=== PATIENT | female | born 1950 | race Caucasian/White ===

== ENCOUNTER → 2016-12-15 | Outpatient (CLI) | payer MEDICARE | LOC: RAD 13:48 | PROVIDERS: ATTEND Specialist | DX: N30.40 Irradiation cystitis without hematuria (principal); R59.0 Localized enlarged lymph nodes; N18.2 Chronic kidney disease, stage 2 (mild) | CPT/HCPCS: 76770 ==

== ENCOUNTER 2017-01-25 08:24 | Day surgery (SDC) | payer MEDICARE, OTHER ==
--- NOTE | 2017-01-20 11:54 | HISTORY AND PHYSICAL E ---
History and Physical NAME: CONRADO ESPINOZA : 1950 AGE: 66Y ADMITTED: 01/25/2017 ROOM: CHIEF COMPLAINT: Severe reflux. PLAN: Upper scope. HISTORY: Known to me since 2003. I saw her regarding constipation, bloating. FAMILY HISTORY: Father has hypertension. Her mom had lung cancer. Father had cancer. SOCIAL HISTORY: The patient is with 4 children. Does not smoke. Does not drink. REVIEW OF SYSTEMS: Reflux, constipation, high cholesterol. CARDIAC: Hypertension. GASTROINTESTINAL: Reflux, diverticulosis, abdominal pain. ONCOLOGY: CA of the breast. MUSCULOSKELETAL: Back pain. MEDICATIONS: She takes iron infusion. PHYSICAL EXAMINATION: VITAL SIGNS: Blood pressure 120/80, pulse 80, respirations 18, temp is 98. Blood pressure 140/100. HEAD, EYES, EARS, NOSE AND THROAT: Normal. NECK: Neck is supple. LUNGS: Lungs are clear. ABDOMEN: Soft. NEUROLOGIC: Exam negative. Colon in 2003, sigmoid diverticulosis. At this time, the patient with exacerbation of reflux. PAST SURGICAL HISTORY: 1. Back surgery L5. 2. Breast cancer lumpectomy right. She was patient of Dr. Friedman. @ CONCLUSIONS: Severe reflux. PLAN: Upper endoscopy scheduled for 01/25/2017. MEDICATIONS: 1. Valsartan. 2. Simvastatin. 3. Aspirin. 4. Oxycodone. DICTATING PHYSICIAN: BREANA MORALES M.D. [id number] PHY#: [id number] ID: [id number] JOB#: [id number] ACCT: [id number] cc:BREANA MORALES M.D., ROBERT M.D. >
[~2017-01-25 08:24] MED LIST: EPINEPHRINE INJ 1 MG/10 ML DISP.SYRIN ONE; FENTANYL CITRATE INJ/PF 100 MCG/2 ML AMPUL ONE; FLUMAZENIL INJ 0.5 MG/5 ML VIAL IV ONE; GLYCOPYRROLATE INJ 0.4 MG/2 ML VIAL ONE; NALOXONE HCL INJ/PF 0.4 MG/1 ML SDV ONE; ONDANSETRON HCL INJ/PF 4 MG/2 ML SDV ONE; PROMETHAZINE HCL INJ 25 MG/1 ML VIAL ONE
[2017-01-25] MEDS: MIDAZOLAM 2 MG/2 ML INJ ONE ×3 (09:18→09:24)
[2017-01-25 10:30] LABS: ABSOLUTE BASOPHILS # (AUTO) 0.1 10^3/uL (0.0-0.2); ABSOLUTE EOSINOPHILS # (AUTO) 0.2 10^3/uL (0.0-0.6); ABSOLUTE LYMPHOCYTES (AUTO) 1.4 10^3/uL (0.5-4.7); ABSOLUTE MONOCYTES (AUTO) 0.6 10^3/uL (0.1-1.4); ABSOLUTE NEUT (AUTO) 3.8 10^3/uL (1.7-8.2); EOSINOPHILS % (AUTO) 2.8 % (0-6); HEMATOCRIT 35.3 % (36.0-47.0); HEMOGLOBIN 12.2 g/dL (12.0-15.5); HGB HCT DIFFERENCE 1.3; MEAN CORPUSCULAR HGB CONC 34.5 g/dL (32.0-36.0); MEAN CORPUSCULAR VOLUME 95 fl (80-97); MONOCYTES % (AUTO) 9.9 % (3-13); RED CELL DISTRIBUTION WIDTH 12.8 % (11.5-14.0); SEGMENTED NEUTROPHILS % (AUTO) 62.3 % (42-78)
[2017-01-25 10:33] VITALS: BP 170/71
[2017-01-25 10:56] LABS: ALANINE AMINOTRANSFERASE 41 U/L (9-52); ALBUMIN 3.9 g/dL (3.5-5.0); ALKALINE PHOSPHATASE 63 U/L (38-126); ANION GAP 11 (5-19); ASPARTATE AMINO TRANSFERASE 24 U/L (14-36); BILIRUBIN,DIRECT 0.2 mg/dL (0.0-0.4); BILIRUBIN,TOTAL 0.4 mg/dL (0.2-1.3); BLOOD UREA NITROGEN 13 mg/dL (7-20); CALCIUM 9.2 mg/dL (8.4-10.2); CARBON DIOXIDE 27 mmol/L (22-30); CHLORIDE 105 mmol/L (98-107); CREATININE RESULT 0.61 mg/dL (0.52-1.25); GLUCOSE 125 mg/dL (75-110); IRON 128.3 ug/dL (37-170); POTASSIUM 4.4 mmol/L (3.6-5.0); SODIUM 142.8 mmol/L (137-145); TOTAL PROTEIN 6.4 g/dL (6.3-8.2)
[2017-01-25 11:24] LABS: CARCINOEMBRYONIC ANTIGEN 0.7 ng/mL (<3.0)
[2017-01-25 11:30] LABS: C-REACTIVE PROTEIN < 5.0 mg/L (<10.0)
--- NOTE | 2017-01-25 13:15 | OPERATIVE REPORT E ---
Operative Report NAME: CONRADO ESPINOZA : 1950 AGE: 66Y DATE OF SURGERY: 01/25/2017 ROOM: PREOPERATIVE DIAGNOSIS: SEVERE REFLUX. POSTOPERATIVE DIAGNOSES: 1. ESOPHAGITIS, MODERATE. 2. GASTRITIS, MILD. 3. DUODENITIS, MILD. HISTORY: I saw the patient back in 2003 when I saw her for bloating constipation. Her mom had lung cancer. OPERATION: 1. Esophagoscopy. 2. Gastroscopy. 3. Duodenoscopy. SURGEON: BREANA MORALES M.D. ANESTHESIA: Versed 4 and fentanyl 100. TISSUE REMOVED OR ALTERED: Gastric biopsy - H. pylori. ALLERGIES: 1. SULFA. 2. ALTACE. PROCEDURE: Baby scope passed under guided vision; no difficulties. Esophagoscopy: (Junction at 40). Mild esophagitis, no stricture. Small hiatus hernia. Gastroscopy: Mild gastritis; no ulcers. Duodenoscopy: Mild duodenitis. CONCLUSION: 1. ESOPHAGITIS. 2. GASTRITIS. 3. DUODENITIS. 4. NO ULCERS; NO BLEEDING. 5. GASTRIC BIOPSY OBTAINED. DISCHARGE PLAN: 1. Hold aspirin. 2. Continue Dexilant. 3. Awaiting biopsy results. 4. Will obtain lab studies. DICTATING PHYSICIAN: BREANA MORALES M.D. [id number] [id number] [facility]#: [id number] ID: [id number] JOB#: [id number] ACCT: [id number] cc:BREANA MORALES M.D. >
--- NOTE | 2017-01-25 13:15 | DISCHARGE SUMMARY E ---
Discharge Summary NAME: CONRADO ESPINZOA : 1950 AGE: 66Y ADMITTED: 01/25/2017 DISCHARGED: 01/25/2017 HISTORY: A 66-year-old female, known to the breast cancer in the right, hypertension, TIA. She does have mesenteric artery stent. She presented with severe reflux for upper scope. No evidence of ulcers. No evidence of malignancy. There was a question of Rodriguez's. Upper scope showed some thickening of the mucosa at the junction, small hiatal hernia, with no evidence of ulcers, no evidence of malignancy. Gastric biopsy obtained for H. pylori. The patient did have a colonoscopy by myself in 2003 showing diverticulosis. DISCHARGE PLAN: 1. Continue present management. 2. Hold aspirin in 3 days. 3. Awaiting biopsy results. 4. Will do lab studies. 5. Patient to see us in the office in the next few days. 6. Consider another colonoscopy. DICTATING PHYSICIAN: BREANA MORALES M.D. [id number] PHY#: [id number] ID: [id number] JOB#: [id number] ACCT: [id number] cc:BREANA MORALES M.D. >
== END 2017-01-25 10:52 | disposition home or self-care (01) ==
LOC: END 08:24
PROVIDERS: ATTEND Specialist
PROC: 0DB68ZX Excision of Stomach, Via Natural or Artificial Opening Endoscopic, Diagnostic (ICD-10-PCS; principal; 2017-01-25 09:00)
DX: K21.0 Gastro-esophageal reflux disease with esophagitis (principal); K31.9 Disease of stomach and duodenum, unspecified; K44.9 Diaphragmatic hernia without obstruction or gangrene; K29.80 Duodenitis without bleeding; R97.0 Elevated carcinoembryonic antigen [CEA]; I10 Essential (primary) hypertension; E78.00 Pure hypercholesterolemia, unspecified; Z88.2 Allergy status to sulfonamides; Z88.8 Allergy status to other drugs, medicaments and biological substances; Z85.3 Personal history of malignant neoplasm of breast; Z79.82 Long term (current) use of aspirin; Z79.899 Other long term (current) drug therapy; Z86.73 Personal history of transient ischemic attack (TIA), and cerebral infarction without residual deficits
CPT/HCPCS: 43239; 36415; 82378; 82728; 83540; 85025; 86140; 80053; 88342 ×2; 88305 ×2; J2250; J3010; J0171; J2310; J2405; J2550; J3490